=== PATIENT | male | born 1995 | race Caucasian/White ===

== ENCOUNTER 2016-04-02 17:54 | Emergency (ER) | payer OTHER ==
[~2016-04-02] VITALS: Ht 182.9 cm; Wt 106.6 kg
[2016-04-02 18:08] VITALS: TEMP 36.8; Ht 182.9 cm; Wt 106.6 kg
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
[2016-04-02] MEDS ORDERED: DIAZEPAM 5MG TAB PO STA (18:55)
[2016-04-02] MEDS ORDERED: CYCL10TA6 PO (18:57)
[2016-04-02 19:14] VITALS: BP 130/90; PULSE 70; O2SAT 96
== END 2016-04-02 19:15 | disposition home or self-care (01) ==
LOC: C.EDB 17:57 → C.EDC 19:15
DX: S13.4XXA Sprain of ligaments of cervical spine, initial encounter (principal); V48.5XXA Car driver injured in noncollision transport accident in traffic accident, initial encounter; F17.210 Nicotine dependence, cigarettes, uncomplicated

== ENCOUNTER 2016-04-10 18:47 | Emergency (ER) | payer OTHER ==
[~2016-04-10] VITALS: Ht 182.9 cm; Wt 116.2 kg
[~2016-04-10 18:47] MED LIST: CYCL10TA6 PO
[2016-04-10 18:49] VITALS: TEMP 37; Ht 182.9 cm; Wt 116.2 kg
[2016-04-10] MEDS ORDERED: LORAZEPAM 2 MG/ML 1 ML VIAL IV STA (20:24)
[2016-04-10] MEDS ORDERED: MoRPHine SULFATE 10 MG/ML CARP/VIAL IV STA (20:24)
[2016-04-10] MEDS ORDERED: ONDANSETRON INJ 2 MG/ML 2 ML VIAL IV STA (20:24)
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
[2016-04-10] MEDS ORDERED: MoRPHine SULFATE 2 MG/ML CARP IV STA (23:25)
[2016-04-11] MEDS ORDERED: OXYC1TAB3 PO (00:05)
[2016-04-11 00:28] VITALS: BP 137/89; PULSE 80; O2SAT 96
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
== END 2016-04-11 00:28 | disposition home or self-care (01) ==
LOC: C.EDB 18:49 → C.EDA 04-11 00:28
DX: M54.2 Cervicalgia (principal); M54.6 Pain in thoracic spine; F07.81 Postconcussional syndrome; F17.210 Nicotine dependence, cigarettes, uncomplicated